=== PATIENT | female | born 1995 | race Two or more races ===

== ENCOUNTER 2021-08-12 13:07 | Inpatient (IN) | payer OTHER ==
[~2021-08-12] VITALS: Ht 157.5 cm; Wt 62.1 kg
[~2021-08-12 13:07] MED LIST: BIOCEL TABLET1 EACH PO; IRON1 TA1 PO; PRENATAL TABLE1 EACH PO
== END 2021-08-14 10:01 | disposition home or self-care (01) | DRG 807 ==
LOC: LDR 13:07 → OB/GYN 13:07
PROVIDERS: ADMIT Specialist; ATTEND Specialist
PROC: 10E0XZZ Delivery of Products of Conception, External Approach (ICD-10-PCS; principal; 2021-08-12)
PROC: 4A1HXCZ Monitoring of Products of Conception, Cardiac Rate, External Approach (ICD-10-PCS; 2021-08-12)
DX: O80 Encounter for full-term uncomplicated delivery (principal); Z37.0 Single live birth; Z3A.39 39 weeks gestation of pregnancy; Z20.822 Contact with and (suspected) exposure to COVID-19